=== PATIENT | male | born 1945 | race Caucasian/White ===

== ENCOUNTER 2016-07-21 10:25 | Day surgery (SDC) | payer OTHER, BC ==
[2016-07-21 12:51] VITALS: BMI 24.9
[2016-07-21] MEDS ORDERED: LIDOCAINE HCL/PF 2% SDV 5ML VIAL ONE (13:41)
[2016-07-21] MEDS ORDERED: PROPOFOL 20 ML ONE (13:41)
[2016-07-21 14:21] VITALS: TEMP 98.4
[2016-07-21 14:42] VITALS: PULSE 49
[2016-07-21 15:04] VITALS: BP 143/60
== END 2016-07-21 15:04 | disposition home or self-care (01) ==
LOC: JASU-ENDO 10:25
PROVIDERS: ATTEND Internal Medicine Gastroenterology
PROC: 0DJ08ZZ Inspection of Upper Intestinal Tract, Via Natural or Artificial Opening Endoscopic (ICD-10-PCS; principal; 2016-07-21 11:30)
DX: R13.10 Dysphagia, unspecified (principal); K25.9 Gastric ulcer, unspecified as acute or chronic, without hemorrhage or perforation

== ENCOUNTER 2017-09-01 08:30 | Day surgery (SDC) | payer OTHER, BC ==
[2017-09-01 09:17] VITALS: BMI 23.6
[2017-09-01] MEDS ORDERED: MIDAZOLAM HCL 2 MG/2 ML SINGLE DOSE VIAL ONE (11:43)
[2017-09-01] MEDS ORDERED: PROPOFOL 20 ML ONE (11:49)
[2017-09-01] MEDS ORDERED: ceFAZolin SODIUM 1 GM VIAL IVPB ONE (11:52)
[2017-09-01] MEDS ORDERED: HYDROmorphone HCL CARPU-JECT 2 MG/1 ML DISP.SYRIN IM ONE (12:40)
[2017-09-01] MEDS ORDERED: DOCUSATE SODIUM 100 MG CAPSULE (FP) PO PRN (12:40)
[2017-09-01] MEDS ORDERED: ACETAMINOPHEN 325 MG TABLET (FP) PO PRN (12:40)
--- NOTE | 2017-09-01 12:46 | OP ---
Operative Note - Note: Operative Date: 09/01/17 Pre-Operative Diagnosis: bph with luts Operation: turp/tuvp Findings: trilobar hypertrophy of prostate gland Implants: none Post-Operative Diagnosis: Same as Pre-op Surgeon: Yanet Mckenzie Anesthesia: General Specimens Removed: prostate tissue Estimated Blood Loss (mls): 40 Drains & Tubes with Location: 22f 30cc jefferson
[2017-09-01] MEDS ORDERED: ONDANSETRON 4 MG/2 ML VIAL IVPUSH PRN (13:02)
[2017-09-01] MEDS ORDERED: LACTATED RINGERS SOLUTION 1,000 ML IV SCH (13:15)
--- NOTE | 2017-09-01 13:30 | OP ---
DATE OF OPERATION: 09/01/2017 PREOPERATIVE DIAGNOSIS: Prostatism, large amount residual urine. OPERATIVE PROCEDURE: Transurethral resection and transurethral vaporization of prostate gland. ANESTHESIA: General. DESCRIPTION OF PROCEDURE: Under above-stated anesthesia, patient is prepped and draped in the usual sterile manner. He is placed in the dorsal lithotomy position. A 30-degree continuous flow scope introduced under direct vision revealed a normal anterior urethra. Prostatic urethra revealed trilobar hypertrophy of the prostate. There was lateral lobe kissing. The bladder was entered. Approximately 250 mL of urine was drained. This was sent for culture and sensitivity. There was a grade 2 trabeculation of the bladder. No lesions or calculi were seen. Ureteral orifices were within normal limits with efflux of clear urine. A loop was first inserted and the median lobe was resected. Prostate chips were evacuated with an Ellik evacuator. The loop was then taken out and a button was introduced, and the right and left lobes were vaporized in the usual fashion by commencing at the 6 o'clock position of the right lateral lobe and going on up to the 12 o'clock position. This was from the bladder neck to the level of the verumontanum. Same thing was done to the left lateral lobe. Hemostasis was secured with electrocoagulation. Extra prostate chips were evacuated with an Ellik evacuator. No active bleeding was noted. The bladder was emptied. The scope was removed. The 22-E[place] 30-mL Joya was inserted. This was connected to a drainage bag. The patient tolerated the procedure well. He returned to the recovery room in good condition. Jose [id number]
[2017-09-01 14:25] VITALS: TEMP 97.4
[2017-09-01 16:55] VITALS: BP 148/71; PULSE 60
--- NOTE | 2017-09-02 15:06 | PATH ---
Surgical Pathology Report Patient Name: BRYANNA KEENE [facility]. Rec. #: [id number] /Age/Gender: 1945 (Age: 72) / M Account: [id number] Location: [facility] SURGICAL Taken: 09/01/2017 Received: 09/01/2017 Reported: 09/02/2017 Physicians: Yanet Mckenzie M.D. Specimen(s) Received TISSUE OF PROSTATE Clinical History BPH Final Diagnosis PROSTATE, TRANSURETHRAL RESECTION OF PROSTATE: BENIGN PROSTATIC TISSUE WITH CYSTIC CHANGES AND STROMAL HYPERPLASIA. CALCULI AND METALLIC FOREIGN BODY MATERIAL. MACROSCOPIC DIAGNOSIS. Electronically Signed Anna Black M.D. Gross Description Received in formalin labeled "prostate tissue," is a 1 g, 1.8 x 1.7 x 0.3 cm aggregate of grier, irregular, firm to rubbery portions of tissue, consistent with prostate tissue. Also received within the same container are multiple brown calculi ranging from 0.1-0.4 cm in greatest dimension. There is also a 0.7 x 0.4 x 0.1 cm geronimo metallic foreign body received within the same container. The prostate tissue is entirely submitted in one cassette. 09/01/201709/01/2017
== END 2017-09-01 16:45 | disposition home or self-care (01) ==
LOC: JASU-SURG 08:30
PROVIDERS: ATTEND Urology
PROC: 0V508ZZ Destruction of Prostate, Via Natural or Artificial Opening Endoscopic (ICD-10-PCS; principal; 2017-09-01 10:00)
DX: N40.0 Benign prostatic hyperplasia without lower urinary tract symptoms (principal); R39.198 Other difficulties with micturition
CPT/HCPCS: 87086; 88304-TC; 94760